=== PATIENT | female | born 1995 | race Caucasian/White ===

== ENCOUNTER 2020-09-20 15:06 | Emergency (ER) | payer OTHER ==
[~2020-09-20] VITALS: Ht 167.6 cm; Wt 64.4 kg
[2020-09-20 15:30] VITALS: BP 120/83
--- NOTE | 2020-09-20 15:30 | NUR ---
ED Nurse Note: patient from home and walked in due to left shoulder and left arm pain for the past couple of days. Denies fall or recent injury. Pt is AOx4, calm and cooperative to care, VSS, on RA, afebrile on triage.
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
[2020-09-20] MEDS ORDERED: VOLTAREN100 G1 TP (16:02)
[2020-09-20] MEDS ORDERED: IBUPROFEN600 M1 ORAL (16:02)
[2020-09-20 16:12] VITALS: BP 125/86
--- NOTE | 2020-09-20 16:12 | NUR ---
ER DISCHARGE NOTE: Patient is cleared to be discharged per ERPA, pt is aox4, on room air, with stable vital signs. pt was given dc and prescription instructions, pt was able to verbalize understanding, pt id band removed. pt is able to ambulate with steady gait. pt took all belongings.
== END 2020-09-20 16:12 | disposition home or self-care (01) ==
LOC: EMR 16:00
DX: S46.002A Unspecified injury of muscle(s) and tendon(s) of the rotator cuff of left shoulder, initial encounter (principal); S43.402A Unspecified sprain of left shoulder joint, initial encounter; W22.8XXA Striking against or struck by other objects, initial encounter; Y93.9 Activity, unspecified; Y92.9 Unspecified place or not applicable; Z88.2 Allergy status to sulfonamides
CPT/HCPCS: 99282